=== PATIENT | male | born 1985 | race Caucasian/White ===

== ENCOUNTER 2022-07-19 21:56 | Observation (INO) | payer OTHER, SELFPAY ==
--- NOTE | ~2022-07-19 | XR_ITS ---
EXAMINATION: XR chest 2V DATE: 07/19/2022 22:38 INDICATION: Chest pain TECHNIQUE: PA and lateral views of the chest were obtained. COMPARISON: None FINDINGS: Mildly decreased lung volumes. No focal airspace opacities, pulmonary edema, pleural effusion or pneu mothorax. The cardiomediastinal silhouette is normal. 35 degrees thoracic dextroscoliosis. IMPRESSION: 1. Small amount with no acute cardiopulmonary disease. Reviewed, dictated and finalized at location A.
--- NOTE | ~2022-07-19 | NM_ITS ---
EXAMINATION: NM sayra stress w perfusion DATE: 07/20/2022 12:47 INDICATION: Chest pain. TECHNIQUE: Rest images were obtained following intravenous administration of 9.2 mCi Tc99m tetrofosmi n (Myoview). The patient was infused intravenously with Lexiscan (regadenoson). Then, 29.3 mCi Tc99m tetrofosmin (Myoview) was administered intravenously, and stress images were obtained. Data was recon structed into short axis and horizontal and vertical long axis SPECT images. Gated SPECT images were also obtained. COMPARISON: None. FINDINGS: There is no definite reversible or fixed perfusion abnormality to suggest ischemia or infar ction. There is no segmental wall motion abnormality. Left ventricular ejection fraction measures > 70%. IMPRESSION: 1. No definite ischemia or infarct. 2. Normal left ventricular ejection fraction measuring >70%. Reviewed, dictated and finalized at location A.
--- NOTE | 2022-07-19 22:09 | ECG_ITS ---
Measurements Intervals [place] Rate: 61 P: 33 CA: 133 QRS: 68 QRSD: 97 T: 68 QT: 412 QTc: 415 Interpretive Statements SINUS RHYTHM POSSIBLE RIGHT VENTRICULAR CONDUCTION DELAY [RSR (QR) IN V1/V2] BORDERLINE ECG NO PREVIOUS ECG AVAILABLE FOR COMPARISON Electronically Signed On 07-20-2022 16:04:12 CDT by Latrell Weeks M.D.
[2022-07-19 22:10] VITALS: BP 142/79; PULSE 66; RESP 18; TEMP 36.2; O2SAT 100
[2022-07-19 22:18] LABS: Basophils Absolute Auto 0.1 K/mm3 (0.0-0.1); Basophils Percent Auto 0.7 % (0.2-1.2); Eosinophils Absolute Auto 0.4 K/mm3 (0-0.3); Eosinophils Percent Auto 3.7 % (0-4.4); Hematocrit 41.8 % (42.0-52.0); Hemoglobin 14.3 g/dL (14.0-18.0); Immature Granulocyte Absolute 0.03 K/mm3 (0.00-0.031); Immature Granulocyte Percent A 0.3 % (0-0.5); Lymphocytes Absolute Auto 3.13 K/mm3 (0.9-3.2); Lymphocytes Percent Auto 33.2 % (18.3-44.2); Mean Corpuscular HGB Conc 34.2 g/dl (32-36); Mean Corpuscular Hemoglobin 30.2 pg (26-34); Mean Corpuscular Volume 88.4 fl (80-100); Mean Platelet Volume 8.8 fl (7.4-10.4); Monocytes Absolute Auto 0.8 K/mm3 (0.1-0.6); Monocytes Percent Auto 8.1 % (2.6-8.5); Neutrophils Absolute Auto 5.1 K/mm3 (1.3-6.7); Platelet Count Result 217 k/mm3 (150-375); Red Blood Count 4.73 M/mm3 (4.6-6.20); Red Cell Distribution Width 12.4 % (11.5-14.5); White Blood Count 9.4 K/mm3 (4.5-10.0)
[2022-07-19 22:29] LABS: INR 1.2; Partial Thromboplastin Time 27.4 SECONDS (22.3-36.8); Prothrombin Time 14.3 Seconds (11.1-14.7)
[2022-07-19 22:30] LABS: Alanine Aminotransferase 50 U/L (6-50); Albumin Level 4.9 g/dL (3.5-5.1); Alkaline Phosphatase 47 U/L (38-126); Anion Gap 15 mmol/L (8-16); Aspartate Amino Transferase 32 U/L (17-59); Bilirubin,Total 0.5 mg/dL (0.2-1.3); Blood Urea Nitrogen 15 mg/dL (9-20); Calcium 9.2 mg/dL (8.4-10.2); Carbon Dioxide 27 mmol/L (22-30); Chloride 100 mmol/L (98-107); Estimated Glomerular Filt Rate > 60; Glucose 136 mg/dL (65-110); Lipase 167 U/L (23-300); Sodium 142 mmol/L (137-145)
[2022-07-19 22:42] LABS: Troponin I < 0.012 ng/mL (0.000-0.034)
[2022-07-20] VITALS (20 sets, daily range): BP systolic 133–148; BP diastolic 66–79; PULSE 56–93; RESP 13–21; TEMP 36–36.8; O2SAT 97–100
--- NOTE | 2022-07-20 | ECHO_ITS ---
Patient Info Name: Raghav Ascencio Age: 37 years : 1985 Gender: Male Ht: 68 in Wt: 200 lbs BSA: 2.11 m2 BP: 145 / 68 mmHg Heart Rhythm: Sinus Rhythm Exam Date: 07/20/2022 10:39 AM Exam Location: [facility] Pulmonary Patient Status: Inpatient Admit Date: 07/20/2022 Staff Ordering Physician: Gatito Cervantes MD (andie/alex) [place]: Bonilla Russo RDCS, RT Attending Provider: Isac Veliz MD Referring Physician: Billy MCCAIN; Exam Type: CA echo dop color flow w con Study Info Indications R07.9 - Chest pain, unspecified Complete two-dimensional, color flow and Doppler transthoracic echocardiogram is performed with contrast to opacify the left ventricle and to improve the deliniation of the left ventricle endocardial borders. Strain analysis performed. Contrast/Agitated Saline Contrast/Ag. Saline: Definity Amount: 4.00 ml Administered By: Bonilla Russo RDCS Existing IV Access: Yes IV Access Condition: patent with no signs of infiltration New IV Access: Antecubital Space and Left Site Condition: No extravasation Summary 1. Left ventricular chamber dimension is normal. 2. Left ventricular systolic function is normal, estimated at 65-70%. 3. There is mildly increased left ventricular wall thickness. 4. The left ventricular diastolic function is normal. 5. Global longitudinal strain is mildly elevated at -14 %. 6. There is no aortic valve regurgitation. 7. There is trace mitral valve regurgitation. Left Ventricle Left ventricular chamber dimension is normal. Left ventricular systolic function is normal, estimated at 65-70%. There is mildly increased left ventricular wall thickness. The left ventricular diastolic function is normal. E/e' 6.98 is normal. Global longitudinal strain is mildly elevated at -14 %. Right Ventricle Right ventricular chamber dimension is normal. Right ventricular systolic function is normal. Left Atria Left atrial chamber dimension is normal. Right Atria Right atrial chamber dimension is normal. Aortic Valve The aortic valve is not well visualized. There is no aortic valve stenosis. There is no aortic valve regurgitation. Pulmonic Valve The pulmonic valve is not well visualized. Mitral Valve The mitral valve has normal leaflets. There is trace mitral valve regurgitation. The mitral valve annulus is mildly calcified. Tricuspid Valve Unable to estimate PA systolic pressure due to poor spectral resolution of tricuspid regurgitant jet velocity. The tricuspid valve leaflets are normal. There is trace tricuspid valve regurgitation. Pericardium/Pleural The pericardium appears normal. There is trivial pericardial effusion. Inferior Vena Cava Normal inferior vena cava with >50% collapse upon inspiration consistent with normal right atrial pressure, 5 mmHg. Aorta The aortic root size at the sinus of Valsalva is normal. Left Ventricular Outflow Tract Name Value Normal LVOT 2D LVOT Diameter 2.11 cm LVOT Doppler LVOT Peak Gradient 3 mmHg LVOT Mean
--- NOTE | 2022-07-20 | EST_ITS ---
Patient Info Name: Raghav Ascencio Age: 37 years : 1985 Gender: Male Ht: 68 in Wt: 205 lbs BSA: 2.14 m2 Exam Date: 07/20/2022 11:52 AM Exam Location: [facility] Stress Patient Status: Inpatient Admit Date: 07/20/2022 Staff Ordering Physician: Trupti Gloria PA-C Attending Provider: Isac Veliz MD Exercise Technologist: Jessica Escobar RDCS Nurse: DERRELL CAMPBELL NP Exam Type: CA stress sayra w NM Study Info Indications R07.9 - Chest pain, unspecified - HEART SCORE =5 A regadenoson stress test was performed. Summary 1. No abnormal ST/T wave changes with Lexiscan. 2. No arrhythmias were observed during the examination. 3. Chest discomfort with stress test resolved spontaneously. 4. Please correlate with nuclear medicine images, reported separately. Protocol: Lexiscan Stress ECG Details Stage: REST Duration (min): 1 min : 36 sec HR (bpm): 61 SBP (mmHg): 137 DBP (mmHg): 68 Stage: REST Duration (min): 9 min : 55 sec HR (bpm): 64 SBP (mmHg): 137 DBP (mmHg): 68 Stage: STAGE 1 Duration (min): 1 min : 0 sec HR (bpm): 97 SBP (mmHg): 155 DBP (mmHg): 63 Stage: RECOVERY Duration (min): 1 min : 0 sec HR (bpm): 97 SBP (mmHg): 134 DBP (mmHg): 60 Stage: RECOVERY Duration (min): 2 min : 0 sec HR (bpm): 83 SBP (mmHg): 134 DBP (mmHg): 60 Stage: RECOVERY Duration (min): 3 min : 0 sec HR (bpm): 80 SBP (mmHg): 124 DBP (mmHg): 60 Stage: RECOVERY Duration (min): 4 min : 0 sec HR (bpm): 79 SBP (mmHg): 124 DBP (mmHg): 60 Stage: RECOVERY Duration (min): 5 min : 0 sec HR (bpm): 72 SBP (mmHg): 130 DBP (mmHg): 59 Stage: RECOVERY Duration (min): 5 min : 17 sec HR (bpm): 75 SBP (mmHg): 130 DBP (mmHg): 59 Rest HR: 64 bpm Peak HR: 97 bpm Rest Sys BP: 137 mmHg Peak Sys BP: 155 mmHg Max Pred HR: 184 bpm % Max Pred HR: 53 % Target HR: 156 bpm Max RPP: 15,035 bpm*mmHg Total Time: 1 min : 0 sec Rest Fine BP: 68 mmHg Peak Fine BP: 63 mmHg Total Dose: 0.4 mg Resting ECG Normal sinus rhythm. RSR' V1. Stress ECG No abnormal ST/T wave changes with Lexiscan. Arrhythmias No arrhythmias were observed during the examination. Report Signatures
[2022-07-20] MEDS: ASPIRIN 81 MG CHEWABLE TABLET 324 MG PO (01:06)
--- NOTE | 2022-07-20 01:34 | ED.CHESTPAIN ---
HPI - Chest Pain General Chief Complaint: Chest Pain <MARY Florence Last Filed: 07/20/22 03:52> Stated Complaint: Chest pain <MARY Florence Last Filed: 07/20/22 03:52> Time Seen by Provider: 07/20/22 00:27 <MARY Florence Last Filed: 07/20/22 03:52> Source: patient <MARY Florence Last Filed: 07/20/22 03:52> Mode of arrival: ambulatory <MARY Florence Last Filed: 07/20/22 03:52> Limitations: no limitations <MARY Florence Last Filed: 07/20/22 03:52> History of Present Illness HPI narrative: Patient is a 37 y/o male who presents to the ED with c/o L sided CP. Patient reports he developed left-sided chest pain, radiating into his left arm and left-sided jaw around 8:30 PM on 07/19. He states pain was aggravated with exertion, relieved with rest. Described as dull aching heaviness. Pain resolved approximately 1 AM today (07/20). He states he has had 2 episodes earlier this week of the pain, which resolved on their own, but with tonight's episode, he became dizzy, sweaty, nauseous, had mild labored breathing and tingling in his L arm. Denying any pain or other symptoms currently at the time of my evaluation. No abdominal pain, vomiting, syncope, headache, recent cough, fever, cold symptoms. Patient denies a previous history of coronary disease, but he does have a history of diabetes, hyperlipidemia, hypertension. No smoking. Family history of coronary disease in his father at the age of 34. Patient has never had a stress test. <MARY Florence Last Filed: 07/20/22 03:52> Related Data Home Medications: Home Medications Medication Instructions Recorded Confirmed aspirin 81 mg chewable tablet 81 mg PO DAILY 07/20/22 07/20/22 metformin 1,000 mg tablet 1,000 mg PO BID 07/20/22 07/20/22 ramipril 1.25 mg capsule 1.25 mg PO DAILY 07/20/22 07/20/22 rosuvastatin 20 mg tablet 20 mg PO DAILY 07/20/22 07/20/22 <Trupti Gloria PA-C - Last Filed: 07/20/22 03:52> Allergies/Adverse Reactions: Allergies Allergy/AdvReac Type Severity Reaction Status Date / Time No Known Allergies Allergy Verified 07/20/22 00:16 <Trupti Gloria PA-C - Last Filed: 07/20/22 03:52> Review of Systems Review of Systems: CONSTITUTIONAL: Reports diaphoresis. Denies fever, chills. EYES: Denies visual changes, redness, or discharge. ENT: Denies rhinorrhea, congestion, sore throat, or otalgia. CARDIOVASCULAR: Reports CP, into L arm/jaw. Denies edema. RESPIRATORY: Reports SOB. Denies dyspnea. GASTROINTESTINAL: Reports nausea. Denies abdominal pain, nausea, vomiting, or diarrhea. NEUROLOGIC: Reports tingling in L arm, dizziness. Denies syncope, headache, numbness, or weakness. <Trupti Gloria PA-C Last Filed: 07/20/22 03:52> All systems reviewed & are unremarkable except as noted in HPI and below <Trupti Gloria PA-C Last Filed: 07/20/22 03:52> [facility] Past Medical History Medical History: Medical History Diabetes mellitus HLD (hyperlipidemia) HTN (hypertension) <Trupti Gloria PA-C Last Filed: 07/20/22 03:52> Surgical History Surgical History: Surgical History No pertinent past surgical history <MARY Florence Last Filed: 07/20/22 03:52> Family History Family History: Family History Father HLD (hyperlipidemia) Hypertension FH: sudden cardiac (SCD) Heart attack CAD (coronary artery disease) Diabetes mellitus <Trupti Gloria PA-C - Last Filed: 07/20/22 03:52> Social History Social History: Social History Smoking status: Never smoker Alcohol intake: never Substance use: never Has the Lack of Transpo
[2022-07-20 01:38] LABS: Troponin I < 0.012 ng/mL (0.000-0.034)
--- NOTE | 2022-07-20 02:09 | PM.IMHP ---
H&P: HPI History of Present Illness Date/Time: 07/20/22 02:09 Chief Complaint: chest pain Narrative: This is a 37-year-old male with past medical history significant for type 2 diabetes mellitus, dyslipidemia, hypertension. patient presents to the emergency room after having episode of chest [place] patient denies having chest pain prior to this has been in his usual state of health. pain was like pressure-like had some nausea with it radiation to the arm episode occurred a 2nd time which prompted the patient to come to the emergency room for evaluation. In emergency room preliminary workup has been essentially nonrevealing. patient is being admitted for further evaluation management and treatment. [facility] Past Medical History Medical History (Updated 07/20/22 @ 03:39 by Trupti Gloria PA-C) Diabetes mellitus HLD (hyperlipidemia) HTN (hypertension) Surgical History Surgical History (Updated 07/20/22 @ 01:51 by Trupti Gloria PA-C) No pertinent past surgical history Social History Social History (Updated 07/20/22 @ 01:52 by Trupti Gloria PA-C) Smoking status: Never smoker Meds Home Medications and Allergies Allergies Allergy/AdvReac Type Severity Reaction Status Date / Time No Known Allergies Allergy Verified 07/20/22 00:16 Vital Signs Vital Signs - 24 hr 07/19/22 22:10 07/20/22 00:19 07/20/22 00:21 Temperature 97.2 F L Pulse Rate 66 57 L Respiratory Rate 18 Blood Pressure 142/79 H Pulse Oximetry 100 Oxygen Delivery Room Air Room Air 07/20/22 00:19 07/20/22 00:20 Temperature Pulse Rate 57 L 62 Respiratory Rate 21 H 13 Blood Pressure 146/79 H Pulse Oximetry 99 99 Oxygen Delivery H&P: Results Labs Labs: Short CBC 07/19/22 Range/Units 22:12 WBC 9.4 (4.5-10.0) K/mm3 Hgb 14.3 (14.0-18.0) g/dL Hct 41.8 L (42.0-52.0) % Plt Count 217 (150-375) k/mm3 BMP 07/19/22 22:12 Sodium 142 Potassium 4.0 Chloride 100 Carbon Dioxide 27 BUN 15 Creatinine 0.80 Glucose 136 H Calcium 9.2 Cardiac Enzymes 07/19/22 07/20/22 Range/Units 22:12 01:07 Troponin I < 0.012 < 0.012 (0.000-0.034) ng/mL Liver Function 07/19/22 Range/Units 22:12 Total Bilirubin 0.5 (0.2-1.3) mg/dL AST 32 (17-59) U/L ALT 50 (6-50) U/L Alkaline Phosphatase 47 (38-126) U/L Albumin 4.9 (3.5-5.1) g/dL Assessment and Plan Assessment and plan (1) Chest pain: Qualifiers: Chest pain type: unspecified Qualified Code(s): R07.9 - Chest pain, unspecified Code(s): R07.9 - Chest pain, unspecified Status: Acute Assessment and Plan: ADMIT TO IMU LEXISCAN STRESS TEST IN A.M. SERIAL CARDIAC ENZYMES CONTINUOUS TELEMETRY SUPPORTIVE CARE (2) HLD (hyperlipidemia): Code(s): E78.5 - Hyperlipidemia, unspecified Status: Acute Assessment and Plan: FOLLOW-UP IN OUTPATIENT SETTING (3) HTN (hypertension): Code(s): I10 - Essential (primary) hypertension Status: Acute Assessment and Plan: RESUME HOME MEDS (4) Diabetes mellitus: Code(s): E11.9 - Type 2 diabetes mellitus without complications Status: Acute Assessment and Plan: HOLD METFORMIN ACCU-CHEKS AC AND HS INSULIN SLIDING SCALE NEEDED
--- NOTE | 2022-07-20 03:28 | ECG_ITS ---
Measurements Intervals [place] Rate: 55 P: 32 MO: 147 QRS: 68 QRSD: 100 T: 63 QT: 422 QTc: 404 Interpretive Statements SINUS BRADYCARDIA WITH SINUS ARRHYTHMIA POSSIBLE RIGHT VENTRICULAR CONDUCTION DELAY [RSR (QR) IN V1/V2] BORDERLINE ECG COMPARED TO ECG 07/19/2022 22:00:40 HEART RATE HAS DECREASED Electronically Signed On 07-20-2022 16:05:50 CDT by Latrell Weeks M.D.
--- NOTE | 2022-07-20 03:47 | ADMGEN ---
This patient, Raghav Ascencio, was admitted to IMU Room 210-01 at 0347. Patient/family oriented to hospital policies and general routines including ID bracelet, bed and alarms, visiting hours, pain management, procedures, bathroom and other care routines, personal items, smoking policy, room service/diet, and visiting hours. Information on how to activate the Rapid Response Team has been discussed. Patient/Family are encouraged to report perceived risks to care and to ask questions if they do not understand what they are told or what they should do.
[2022-07-20 04:50] LABS: Troponin I < 0.012 ng/mL (0.000-0.034)
[2022-07-20 08:20] LABS: Glucose Point of Care 151 mg/dl (65-105)
[2022-07-20] MEDS: NITROGLYCERIN SL 0.4 MG TABLET SUBLINGUAL (08:39)
[2022-07-20] MEDS: INSULIN ASPART (*BKC) 100 UNITS/ML SUB-Q (08:39)
[2022-07-20 09:55] LABS: Glucose Point of Care 150 mg/dl (65-105)
--- NOTE | 2022-07-20 10:41 | PM.CNCAR ---
Assessment and Plan Assessment and plan (1) Chest pain: Qualifiers: Chest pain type: unspecified Qualified Code(s): R07.9 - Chest pain, unspecified Code(s): R07.9 - Chest pain, unspecified Status: Acute Assessment and Plan: Continue ASA 81mg daily. Continue home dose of statin. TTE ordered - will follow up on results. Stress MPI ordered - will follow up on results. Lipid panel and A1c ordered for further risk stratification. (2) HLD (hyperlipidemia): Code(s): E78.5 - Hyperlipidemia, unspecified Status: Acute Assessment and Plan: Continue statin. Lipid panel pending. (3) HTN (hypertension): Code(s): I10 - Essential (primary) hypertension Status: Acute Assessment and Plan: BP okay here (4) Diabetes mellitus: Code(s): E11.9 - Type 2 diabetes mellitus without complications Status: Acute Assessment and Plan: A1c pending. History of Present Illness History of Present Illness Consult date/time: 07/20/22 10:41 Requesting physician: Trupti Gloria PA-C Consult reason: chest pain Reason For Visit: Chest pain, HEART Score =5 Narrative: Patient is a 37-year-old male with a history of type 2 diabetes mellitus, hypertension, hyperlipidemia, and family history of premature CAD who presented to the ED with chest pain. Patient's at bedside to provide additional history. Patient lives about 2 hours away from here close to [place]. Patient states they were visiting [facility] to go to [employer] with their kids. Patient states that yesterday when he was about to get on a ride, he felt left anterior chest pressure with numbness in his left arm that lasted for few hours. Patient had a prior episode of chest pain that occurred last Wednesday a week ago. Was again left sided, no radiation at that time. Lasted for 15-20 minutes. Occurred at rest. Had another similar episode on Wednesday last week. FHx: Father from [place] at age 54, had multiple prior MIs to that. Denies ETOH, tobacco, and illicit drug use. EKG shows incomplete RBBB with sinus rhythm. No ischemic changes. Troponins negative x 3. Review of Systems Constitutional: Constitutional: Denies body ache(s), Denies chills, Denies fatigue and Denies night sweats Eyes: Eyes: Denies blurry vision ENT: Denies dysphagia Cardiovascular: Cardiovascular: Reports as per HPI Respiratory: Respiratory: Denies chest congestion, Denies hemoptysis, Denies dyspnea and Denies dyspnea on exertion Gastrointestinal: Gastrointestinal: Denies abdominal pain, Denies nausea and Denies vomiting Musculoskeletal: Musculoskeletal: Reports no additional musculoskeletal complaints Integumentary/Breasts: Skin/Breast: Reports system reviewed and no additional complaints, except as docu Neurologic: Reports system reviewed and no additional complaints, except as documented Psychiatric: Psychiatric: Reports no additional psychiatric complaints Hematologic/Lymphatic: Hematologic/Lymphatic: Denies easy bleeding and Denies easy bruising PMFSH Past Medical History Medical History Diabetes mellitus HLD (hyperlipidemia) HTN (hypertension) Surgical History Surgical History No pertinent past surgical history Family History Family History Father HLD (hyperlipidemia) Hypertension FH: sudden cardiac (SCD) Heart attack CAD (coronary artery disease) Diabetes mellitus Social History Social History Smoking status: Never smoker Alcohol intake: never Substance use: never Spiritual care concerns: No Has the Lack of Transportation Kept You From Medical Appointments or From Getting Medications?: No Within the Past 12 Months, Were You Worried Whether Your Food Would Run Out Before You Got Money to Bu
[2022-07-20] MEDS: PERFLUTREN LIPID MICROSPHERES 1.5 ML VIAL DILUTED TO 10 ML TOTAL VOLUME IV PUSH (10:42)
--- NOTE | 2022-07-20 10:42 | IVDEFINITY ---
Prior to administration of IV Definity the patient was educated on the risks and benefits of the imaging enhancing agent including potential adverse side effects. The patient verbalized understanding. Allergies were verified. No exclusion criteria were identified and at least one of the following inclusion criteria were met: 1) physician request, 2) patient technically difficult to image (per the [place] [employer] guidelines of two or more segments not discernable within the apical view), or 3) questionable left ventricular function. ?
[2022-07-20 10:59] LABS: Cholesterol 110 mg/dL (0-200); HDL Direct 40 mg/dL; Triglycerides 84 mg/dL (<150)
[2022-07-20 11:10] LABS: LDL Cholesterol Direct 52 mg/dL
--- NOTE | 2022-07-20 11:11 | PM.IMPN ---
Progress Note: A&P Assessment and Plan (1) Chest pain: Qualifiers: Chest pain type: unspecified Qualified Code(s): R07.9 - Chest pain, unspecified Code(s): R07.9 - Chest pain, unspecified Status: Acute Assessment and Plan: strong family hx of cad, personal hx of dm, htn, hlp; non smoker. typical chest gabbi . stres test planned. cardiology on board. contiue aspirin, statin. ruled out for ACS (2) HLD (hyperlipidemia): Code(s): E78.5 - Hyperlipidemia, unspecified Status: Acute Assessment and Plan: FOLLOW-UP IN OUTPATIENT SETTING (3) HTN (hypertension): Code(s): I10 - Essential (primary) hypertension Status: Acute Assessment and Plan: RESUME HOME MEDS (4) Diabetes mellitus: Code(s): E11.9 - Type 2 diabetes mellitus without complications Status: Acute Assessment and Plan: HOLD METFORMIN ACCU-CHEKS AC AND HS INSULIN SLIDING SCALE NEEDED Subjective Date/time seen: 07/20/22 11:11 Interval history: chest pain retrosternal radiating to jwa nd left arm tingling and numbness, improved with nitro this am. strong postiive family history of cad in fathers side. non somker. diabetes, hyperension and hyperlpidemia. echo this am being done. going for stress test today. Review of Systems Review of Systems: All systems reviewed & are unremarkable except as noted in HPI and below Exam Narrative: GENERAL: Well appearing, well-nourished, non-toxic, in no acute distress. HEAD: Normocephalic, atraumatic. NECK: Supple. No adenopathy, no masses. RESPIRATORY: Airway patent, respirations nonlabored. Clear to auscultation bilaterally, no rales, rhonchi, wheezing. CARDIOVASCULAR: Regular rate and rhythm without murmurs, rubs, or gallops. Peripheral pulses 2+ and equal bilaterally. ABDOMINAL: Soft, nontender, nondistended, no hepatosplenomegaly. Normoactive BS. MUSCULOSKELETAL: Moves all extremities. Strength/ROM intact without gross deformities.? No chest wall tenderness to palpation.? No edema or calf tenderness. SKIN: Warm, dry, normal color. No rashes. NEURO: A&O X3. Speech clear. Cranial nerves II-XII grossly intact. Steady gait. No ataxic movements. PSYCHIATRIC: Appropriate mood and affect. Normal interaction. Objective Data Vital Signs Vital Signs: Vital Signs - 24 hr 07/19/22 22:10 07/20/22 00:19 07/20/22 00:21 Temperature 97.2 F L Pulse Rate 66 57 L Respiratory Rate 18 Blood Pressure 142/79 H Pulse Oximetry 100 Oxygen Delivery Room Air Room Air 07/20/22 00:19 07/20/22 00:20 07/20/22 00:21 Temperature Pulse Rate 57 L 62 57 L Respiratory Rate 21 H 13 16 Blood Pressure 146/79 H Pulse Oximetry 99 99 100 Oxygen Delivery 07/20/22 00:30 07/20/22 00:31 07/20/22 01:34 Temperature Pulse Rate 62 65 67 Respiratory Rate 15 15 14 Blood Pressure 141/79 H Pulse Oximetry 98 99 98 Oxygen Delivery 07/20/22 01:45 07/20/22 01:46 07/20/22 02:02 Temperature Pulse Rate 66 61 58 L Respiratory Rate 14 18 19 Blood Pressure 136/66 Pulse Oximetry 99 98 98 Oxygen Delivery 07/20/22 02:17 07/20/22 02:30 07/20/22 02:45 Temperature Pulse Rate 60 61 67 Respiratory Rate 16 16 19 Blood Pressure Pulse Oximetry 99 97 97 Oxygen Delivery 07/20/22 04:00 07/20/22 04:43 07/20/22 06:00 Temperature 98.3 F Pulse Rate 57 L 63 56 L Respiratory Rate 20 Blood Pressure 133/74 Pulse Oximetry 100 Oxygen Delivery 07/20/22 08:00 07/20/22 08:00 07/20/22 08:00 Temperature 97.4 F L Pulse Rate 67 66 Respiratory Rate 18 Blood Pressure 145/68 H Pulse Oximetry 98 Oxygen Delivery Room Air 07/20/22 10:00 Temperature Pulse Rate 76 Respiratory Rate Blood Pressure Pulse Oximetry Oxygen Delivery Intake/Output Intake/Output: Intake & Output 07/17/22 07/18/22 07/19/22 07/20/22 23:59 23:59 23:59 23:59 Intake Total 0 Output Total 0 Balance 0
[2022-07-20 11:26] LABS: Hemoglobin A1C 7.2 % (<5.7)
[2022-07-20 13:24] LABS: Glucose Point of Care 131 mg/dl (65-105)
--- NOTE | 2022-07-20 16:21 | PM.DS ---
DS: Admitting Diagnosis Discharge Date 07/20/2022 Admitting Diagnosis chest pain DS: Discharge Diagnosis Discharge Diagnosis (1) Chest pain: Qualifiers: Chest pain type: unspecified Qualified Code(s): R07.9 - Chest pain, unspecified Code(s): R07.9 - Chest pain, unspecified Status: Acute (2) HLD (hyperlipidemia): Code(s): E78.5 - Hyperlipidemia, unspecified Status: Acute (3) HTN (hypertension): Code(s): I10 - Essential (primary) hypertension Status: Acute (4) Diabetes mellitus: Code(s): E11.9 - Type 2 diabetes mellitus without complications Status: Acute DS: Summary Hospital Course Hospital Course: # chest pain: ?strong family hx of cad, personal hx of dm, htn, hlp; non smoker. Cardiology was consulted. Ruled out for ACS with 3- troponins Continued on aspirin and statin Stress test was performed which came back negative. Follow-up with PCP and Cardiology as an outpatient basis Echo with normal ejection fraction no significant valvular abnormality. # hyperlipidemia: On rosuvastatin ?FOLLOW-UP IN OUTPATIENT SETTING # hypertension: On ramipril # type 2 diabetes mellitus: ?HOLD METFORMIN ?ACCU-CHEKS AC AND HS ?INSULIN SLIDING SCALE NEEDED A1c came back at 7.2. Follow-up with PCP for further care Time Spent with Patient Time attestation: Total time spent providing and/or coordinating discharge services:45 mins Exam Narrative: GENERAL: Well appearing, well-nourished, non-toxic, in no acute distress. HEAD: Normocephalic, atraumatic. NECK: Supple. No adenopathy, no masses. RESPIRATORY: Airway patent, respirations nonlabored. Clear to auscultation bilaterally, no rales, rhonchi, wheezing. CARDIOVASCULAR: Regular rate and rhythm without murmurs, rubs, or gallops. Peripheral pulses 2+ and equal bilaterally. ABDOMINAL: Soft, nontender, nondistended, no hepatosplenomegaly. Normoactive BS. MUSCULOSKELETAL: Moves all extremities. Strength/ROM intact without gross deformities.? No chest wall tenderness to palpation.? No edema or calf tenderness. SKIN: Warm, dry, normal color. No rashes. NEURO: A&O X3. Speech clear. Cranial nerves II-XII grossly intact. Steady gait. No ataxic movements. PSYCHIATRIC: Appropriate mood and affect. Normal interaction. DS: Data Data Completed and Pending Completed studies during hospitalization: Exam Type: ? ? CA echo dop color flow w con Study Info Indications ? ? R07.9 - Chest pain,? unspecified Complete two-dimensional, color flow and Doppler transthoracic echocardiogram is performed with contrast to opacify the left ventricle and to improve the deliniation of the left ventricle endocardial borders. ? Strain analysis performed. Account #: ? ? [id number] Contrast/Agitated Saline Contrast/Ag. Saline: ? ? Definity Amount: ? ? 4.00 ml Administered By: ? ? Karan,? Bonilla [facility] Existing IV Access: ? ? Yes IV Access Condition: ? ? patent with no signs of infiltration New IV Access: ? ? Antecubital Space and Left Site Condition: ? ? No extravasation Summary ? 1. Left ventricular chamber dimension is normal. ? 2. Left ventricular systolic function is normal, estimated at 65-70%. ? 3. There is mildly increased left ventricular wall thickness. ? 4. The left ventricular diastolic function is normal. ? 5. Global longitudinal strain is mildly elevated at -14 %. ? 6. There is no aortic valve regurgitation. ? 7. There is trace mitral valve regurgitation. Left Ventricle ? Left ventricular chamber dimension is normal. ? Left ventricular systolic function is normal, estimated at 65-70%. ? There is mildly increased left ventricular wall thickness. ? The left ventricular diastolic function is normal. ? E/e' 6.98 is normal. ? Global longitudinal strain is mildly elevated at -14 %. Right Ventricle ? Right ventricular chamber dimension is normal. ? Right ventricular systolic function is n
[2022-07-20] MEDS: IBUPROFEN 400 MG TABLET 800 MG PO (17:05)
== END 2022-07-20 17:11 | disposition home or self-care (01) ==
LOC: ANHED 07-20 00:27 → ANHIMU 07-20 03:27
PROVIDERS: Internal Medicine; Admitting Provider Internal Medicine; Emergency Provider Emergency Medicine; Visit Provider Internal Medicine
DX: R07.9 Chest pain, unspecified (principal); Z79.82 Long term (current) use of aspirin; E11.9 Type 2 diabetes mellitus without complications; E78.5 Hyperlipidemia, unspecified; I10 Essential (primary) hypertension
CPT/HCPCS: 36415; 71046; 78452; 80053; 80061; 82948; 83036; 83690; 84484; 85025; 85610; 85730; 93005; 93017; 93306; 96374; 99285; A9270; A9502; C8929; G0378; J1815; J2785; Q9957